=== PATIENT | male | born 1995 | race Caucasian/White ===

== ENCOUNTER 2020-05-13 15:44 | Emergency (ER) | payer BC, SELFPAY ==
--- NOTE | ~2020-05-13 | XR_ITS ---
EXAMINATION: XR SHOULDER, LEFT CLINICAL INFORMATION: Fall, trauma, pain COMPARISON: None. TECHNIQUE: Frontal and lateral views left shoulder. FINDINGS: There is a fracture mid clavicular shaft proximal to the coracoclavicular ligament with superior angulation fracture site. The acromioclavicular alignment is normal. The humeral head and neck are intact. There is a fracture scapula body better appreciated on lateral view with posterior displacement distal fracture fragment by almost one bone diameter. XR/XR shoulder LT min 2V IMPRESSION: 1. Fracture mid left clavicular shaft with superior angulation fracture site. 2. Fracture scapula body with displacement distal fracture fragment by almost one bone diameter.
[2020-05-13 16:16] VITALS: BP 153/92; PULSE 87; RESP 18; TEMP 37; O2SAT 100; BMI 25.1
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
== END 2020-05-13 18:43 | disposition home or self-care (01) ==
PROVIDERS: Emergency Provider Emergency Medicine; PCP Family Medicine
DX: S42.022A Displaced fracture of shaft of left clavicle, initial encounter for closed fracture (principal); S42.115A Nondisplaced fracture of body of scapula, left shoulder, initial encounter for closed fracture; V86.59XA Driver of other special all-terrain or other off-road motor vehicle injured in nontraffic accident, initial encounter; Y93.89 Activity, other specified; Y92.828 Other wilderness area as the place of occurrence of the external cause; Y99.8 Other external cause status; F17.200 Nicotine dependence, unspecified, uncomplicated
CPT/HCPCS: 73030; 99283; 99284